=== PATIENT | female | born 1950 | race Caucasian/White ===

== ENCOUNTER 2017-01-16 06:14 | Inpatient (IN) | payer OTHER, MEDICARE ==
--- NOTE | ~2017-01-16 | PREOPHP ---
PreOp History and Physical [facility] [address] [place]. [address] NAME: DOM ALLEN : 50 STATUS : ADM IN PAT#: [id number] AGE: 66 ADM/REG DATE : 01/16/17 MR#: [id number] REPORT SERV DATE: 01/16/17 DICTATED BY: MATTHEW PEÑA DATE: 01/16/17 REPORT STATUS : Draft TRANSCRIBED BY: MODYves DATE: 01/16/17 CHIEF COMPLAINT: Back pain, right hip and leg pain. HISTORY OF PRESENT ILLNESS: A 66-year-old female with a longstanding right buttock and leg pain worse with standing or walking, better with sitting. No history of trauma or injury. Symptoms are gradual in onset, it has just gradually worsened. The worst pain is in the right buttock. She initially saw a hip surgeon, who did not find any actual arthritis of the joint, but did find a labral tear of the acetabulum. She was seen by Dr. Tom Quiros, who did a repair of the labrum in 12/2015. This has not brought about significant relief for her. The pain has worsened in the back, buttock, and leg. It radiates all the way down to her foot. The pain is anywhere from 8-9 on a scale of 0-10, it is best is when she is lying flat and it is still 6/10 at that point. Plain x-rays revealed a grade 1 spondylolisthesis. She also has some thoracolumbar scoliosis from T10-L3. She has a 34- degree scoliosis. The small grade 1 spondylolisthesis, has about 5.7 mm translation with lateral flexion and extension x-rays. This is indicating gross instability at this level. MRI shows severe foraminal stenosis on the right at L4-5 and I think the symptoms that she is now experiencing is related to the severe stenosis and instability at L4-5. She is now admitted for a right-sided L4-5 hemilaminectomy, foraminotomy, facetectomy, transforaminal diskectomy, anterior interbody cage insertion, posterior lateral interbody fusion with local bone graft allograft and posterior percutaneous Voyager instrumentation. Prior to surgery, risks, benefits, alternatives, and expectations have been explained. Consent form is signed. Please note, the patient does have an obvious dropfoot on the right. Strength is only 3/5 on the left. Her strength is also slightly weak for tibialis anterior, posterior tibialis, and EHL at 4/5. Also, please note, because of the complexity of surgery with the need to identify correct level of surgery intraoperatively as well as desire to carry out the safest and most precise dissection. I feel intraoperative navigation will be mandatory. PAST MEDICAL HISTORY: None. PAST SURGICAL HISTORY: She has repair of the gluteus medius and a labrum repair on the right on 01/13/2016. She has also had wisdom teeth extraction, , and a sinus surgery. CURRENT MEDICATIONS: Include Advil, alendronate, aspirin, gabapentin, hydrochlorothiazide, lisinopril, and Prilosec. ALLERGIES: CODEINE. SOCIAL HISTORY: She is and stays at home and takes care of grandchildren. Never smokes. Never uses alcohol. FAMILY HISTORY: Noncontributory. REVIEW OF SYSTEMS: PreOp History and Physical [address] [address] NAME: DOM ALLEN : 50 STATUS : ADM IN [facility]#: [id number] AGE: 66 ADM/REG DATE : 01/16/17 MR#: [id number] REPORT SERV DATE: 01/16/17 DICTATED BY: MATTHEW PEÑA DATE: 01/16/17 REPORT STATUS : Draft TRANSCRIBED BY: JUANA DATE: 01/16/17 Denies any current chest pain, pressure, or shortness of breath. Has no recent alteration in bowel and bladder function. PHYSICAL EXAMINATION: VITAL SIGNS: She is 5 feet 2 inches, 140 pounds. BMI is 25.6. GENERAL: She is alert, cooperative, well oriented, ambulates independently. HEENT: Grossly normal. LUNGS: Clear to auscultation. HEART: Rate is regular and rhythmic. ABDOMEN: Soft with good bowel sounds. No peritoneal signs are noted. MUSCULOSKELETAL: Spine does have some deformity. There is some asymmetry of the flank. There is no pelvic obliquity or leg length discrepancies. Straight leg raising signs are negative. Femoral nerve stretch tests are negative. Motor strength is outlined as previously. The left-sided tibialis anterior is 4/5, on the right it is 3/5. All other motor strengths are 5/5. Reflexes are symmetrical and normal. No dermatomal sensory deficits are found except on the right side. There is some decrease in the L4 distribution. There is no evidence of myelopathy. Lorraine signs are negative. KWABENA signs are negative. Orthopedically, she has no pain with moving hips, knees, or ankles. There are good pulses in all four extremities. No abnormal skin lesions are found. ASSESSMENT AND RECOMMENDATIONS: As listed above. /MODL Matthew Peañ D.O. / [id number] CC: Sofia Beck M.D.
--- NOTE | ~2017-01-16 | OP ---
Record Of Operation [facility] [address] [place]. [address] NAME: DOM ALLEN : 50 STATUS : ADM IN PAT#: [id number] AGE: 66 ADM/REG DATE : 01/16/17 MR#: [id number] REPORT SERV DATE: 01/16/17 DICTATED BY: MATTHEW PEÑA DATE: 01/16/17 REPORT STATUS : Draft TRANSCRIBED BY: MODL DATE: 01/16/17 DATE OF PROCEDURE: PREOPERATIVE DIAGNOSES: 1. Grade 1 spondylolisthesis, L4-5. 2. Severe foraminal stenosis, right side, L4-5, requiring facetectomy. POSTOPERATIVE DIAGNOSES: 1. Grade 1 spondylolisthesis, L4-5. 2. Severe foraminal stenosis, right side, L4-5, requiring facetectomy. PROCEDURE: 1. Microscopic and navigation-assisted surgery. 2. Right L4-5 hemilaminectomy, foraminotomy, and facetectomy. 3. Transforaminal diskectomy. 4. Anterior interbody cage insertion (Capstone). 5. Posterolateral interbody fusion with local bone graft and allograft. 6. Posterior percutaneous Voyager instrumentation, L4-5. SURGEON: Matthew Peña D.O. CAMOUFLAGE ASSEMBLER: Pablito Rosales. ANESTHESIA: General. ESTIMATED BLOOD LOSS: 50 mL. INDICATION FOR SURGERY: Indication for surgery and risks were explained. They are listed in last office note as well in the history and physical. See that for detail. DESCRIPTION OF PROCEDURE: Antibiotic prophylaxis was given. Neurophysiology monitoring leads were inserted. The patient was brought to the operative suite. General anesthetic including endotracheal intubation was administered. Pruitt catheter was placed with sterile technique. The patient was placed prone on a Jose Luis spine frame. Bony prominences were carefully padded. Thoracolumbar spine scrubbed with Hibiclens solution. DuraPrep was painted. Sterile drapes were applied. A small stab wound was carried out over the left posterior superior iliac spine. A percutaneous pin with navigational frame attached was inserted into the PSIS. Intraoperative CT scan with O-arm obtained, CT information used to register the navigational system. With navigational assistance, I identified the right-side of L4-5 facet joint. Just lateral to the facet joint, a 3 cm skin incision was carried out. A blunt navigated probe was placed through the fascia muscle and docked over the facet joint. Muscle dilators were inserted followed by placement of a tubular retractor attached to an arm mount on the table. Record Of Operation [facility] [address] [place]. [address] NAME: DOM ALLEN : 50 STATUS : ADM IN PAT#: [id number] AGE: 66 ADM/REG DATE : 01/16/17 MR#: [id number] REPORT SERV DATE: 01/16/17 DICTATED BY: MATTHEW PEÑA DATE: 01/16/17 REPORT STATUS : Draft TRANSCRIBED BY: JUANA DATE: 01/16/17 The microscope was sterilely draped and used throughout the remainder of procedure. With navigational assistance, I identified the top of the pedicle of L5 and the inferior pedicle of L4. I used a cutting bur, a sukhwinder bur, and started from [id number]. I transected the superior articular facet of L5 just at the top of the pedicle. I removed the pars interarticularis, the lamina, and inferior articular process of L4. This decompressed the central canal and the lateral recess and removing the superior aspect of the facet joint of L5, decompressed the lateral foramen. There was severe foraminal stenosis, due to a combination of spondylolisthesis, facet hypertrophy, and ligamentum hypertrophy. I then carried out a transforaminal diskectomy with curettes, rongeurs, and disk jina. Interbody irrigation was carried out. Interbody trial was carried out. Finally, we used a local bone graft, allograft, and packed it on the left side of the interbody space. A 9 x 26 mm Capstone cage was inserted through the right side maintaining it mostly on the right side to correct some of the coronal deformity. The exiting L4 nerve root was nicely protected and was guarded throughout the procedure. After the posterolateral interbody fusion was completed, the retractor was removed. I then went to the left side, and created a 3 cm skin incision just lateral to the facet joint to match that on the right. We then used a navigated percutaneous Voyager pedicle tap and screw valve grinder. We tapped the pedicles of L4 and L5 bilaterally, followed by placing of a polyaxial Voyager screws at both L4 and L5. The lordotic dumbbell jackelyn was then placed through the top portion, the screw extenders were reduced into the tulip of the pedicle screw. The set screws were inserted and tightened with a torque wrench providing rigid stability. Screw extenders were removed. Intraoperative CT scan with O-arm was repeated showing excellent position of all implants. The fascial opening was closed with a single interrupted #1 Vicryl suture. The subcutaneous tissue was closed with 2-0 Vicryl suture, 2-0 vertical mattress nylon suture was used for skin closure. Sterile dressings were applied. The patient awakened, extubated, and taken to recovery room in satisfactory condition having tolerated procedure well. Sponge, needle, and instrument counts were correct. No intraoperative complications were noted. ALFRED/JUANA Matthew Peña D.O. / [id number] CC: Matthew Peña D.O.
--- NOTE | ~2017-01-16 | DS ---
Discharge Summary [facility] [address] [place]. [address] NAME: DOM ALLEN : 50 STATUS : DIS IN PAT#: [id number] AGE: 66 ADM/REG DATE : 01/16/17 MR#: [id number] REPORT SERV DATE: 01/28/17 DICTATED BY: MATTHEW PEÑA DATE: 01/27/17 REPORT STATUS : Draft TRANSCRIBED BY: MODYves DATE: 01/27/17 Data Collection from hospitalization DISCHARGE DIAGNOSES: 1. Grade 1 spondylolisthesis, L4-5. 2. Severe foraminal stenosis, right side L4-5 requiring facetectomy. 3. Hypertension. 4. Gastroesophageal reflux disease. 5. Anxiety. CONSULTATIONS: None. PROCEDURES PERFORMED: Microscopic navigation assisted surgery, right L4-5; hemilaminectomy; foraminotomy and facetectomy; transforaminal diskectomy; anterior interbody cage insertion (capstone); posterolateral interbody fusion with local bone graft and allograft; posterior percutaneous Voyager instrumentation, L4-5, 01/16/2017. PATHOLOGY: Vertebral bone and soft tissue, lumbar spine - no specific microscopic abnormality. MEDICATIONS: Aspirin 81 mg daily, Neurontin 300 mg every 8 hours, hydrochlorothiazide 25 mg daily, Dilaudid 2-4 mg every four hours as needed, Prinivil 10 mg daily, Robaxin 500 mg every 8 hours, Prilosec 20 mg every morning. CONDITION AT DISCHARGE: Stable. DISPOSITION: The patient was discharged home on a regular diet with activities as instructed. She would follow up with me on 01/31/2017. HOSPITAL COURSE: This is a 66-year-old female, who has had a longstanding right buttock and leg pain that was worse with standing or walking, was better with sitting. There was no history of trauma or injury. The patient has grade 1 spondylolisthesis, L4-5 and severe foraminal stenosis on the right side at L4-5 requiring facetectomy. Treatment options were discussed and it was elected to proceed with surgical intervention. She was admitted to the hospital at this time for further evaluation and treatment. Upon admission, she was taken to the operating room, where she underwent the above-mentioned procedure. She tolerated this well. There were no complications. On postop day #1, she was doing okay. Her blood pressure was a little low. She still complained of a lot of low back pain because her pain medication had been held the last few hours. She had no right hip or leg pain. Homans sign was negative. She was evaluated by Physical Therapy. Over the next couple of days, she continued to progress. She had no right leg pain. Discharge planning was performed. She was changed to oral medications. On 01/19/2017, discharge instructions were given. Due to her improved and stable condition, she was discharged home with the above-stated instructions. Information collected by: Xi Reza Discharge Summary [facility] [address] [place]. [address] NAME: DOM ALLEN : 50 STATUS : DIS IN PAT#: [id number] AGE: 66 ADM/REG DATE : 01/16/17 MR#: [id number] REPORT SERV DATE: 01/28/17 DICTATED BY: MATTHEW PEÑA DATE: 01/27/17 REPORT STATUS : Draft TRANSCRIBED BY: JUANA DATE: 01/27/17 I submit the above information as my discharge summary. TG/JUANA Matthew Peña D.O. / [id number] CC: Sofia Beck M.D.
[~2017-01-16 06:14] MED LIST: ASAB PO; HYDROCHLOROT25 MG PO; NEUR300 PO; PRILO PO; PRIN10 PO
[2017-01-16 11:16] LABS: BASOPHILS 0.4 %; BASOPHILS ABSOLUTE 0.03 10/3/uL (0.0-0.16); EOSINOPHILS 1.1 %; EOSINOPHILS ABSOLUTE 0.08 10/3/uL (0.0-0.53); HEMATOCRIT 34.6 % (36.0-48.0); HEMOGLOBIN 11.8 g/dL (12.0-16.0); IMMATURE GRANULOCYTES ABSOLUTE 0.07 10/3/uL (0.0-0.11); LYMPHOCYTES 33.5 %; LYMPHOCYTES ABSOLUTE 2.38 10/3/uL (0.67-4.30); MANUAL DIFF NO %; MEAN CORPUS HGB CONC 34.1 g/dL (32.0-36.0); MEAN CORPUSCULAR HEMOGLOB 30.9 pg (26.0-34.0); MEAN CORPUSCULAR VOLUME 90.6 fL (80-100); MEAN PLATELET VOLUME 9.2 fL (9.2-13.0); MONOCYTES ABSOLUTE 0.21 10/3/uL (0.21-1.20); NEUTROPHILS ABSOLUTE 4.34 10/3/uL (2.02-8.40); PLATELET COUNT 245 10/3/uL (150-400); RBC DISTRIBUTION WIDTH 13.2 % (12.0-16.0); RED CELL COUNT 3.82 10/6/uL (4.0-5.6); WHITE BLOOD CELLS 7.1 10/3/uL (4.5-10.5)
[2017-01-16 11:24] LABS: BUN (BLOOD UREA NITROGEN) 12 MG/DL (6-23); CALCIUM, SERUM 8.3 MG/DL (8.5-10.4); CHLORIDE, SERUM 108 MMOL/L (96-112); CO2 (CARBON DIOXIDE) 28 MMOL/L (24-34); CREATININE 0.82 MG/DL (0.55-1.02); GFR AFRICAN AMERICAN 86 ML/MIN (>=60); GFR NON AFRICAN AMERICAN 75 ML/MIN (>=60); GLUCOSE, SERUM 111 MG/DL (60-99); POTASSIUM, SERUM 3.7 MMOL/L (3.5-5.3); SODIUM, SERUM 143 MMOL/L (135-148)
[2017-01-17 04:55] LABS: BASOPHILS 0.1 %; BASOPHILS ABSOLUTE 0.01 10/3/uL (0.0-0.16); EOSINOPHILS 0 %; HEMATOCRIT 32.8 % (36.0-48.0); HEMOGLOBIN 11.2 g/dL (12.0-16.0); IMMATURE GRANULOCYTES 0.3 %; IMMATURE GRANULOCYTES ABSOLUTE 0.05 10/3/uL (0.0-0.11); LYMPHOCYTES 5.2 %; LYMPHOCYTES ABSOLUTE 1.02 10/3/uL (0.67-4.30); MANUAL DIFF NO %; MEAN CORPUS HGB CONC 34.1 g/dL (32.0-36.0); MEAN CORPUSCULAR HEMOGLOB 31.3 pg (26.0-34.0); MEAN CORPUSCULAR VOLUME 91.6 fL (80-100); MEAN PLATELET VOLUME 9.8 fL (9.2-13.0); MONOCYTES 4.8 %; MONOCYTES ABSOLUTE 0.94 10/3/uL (0.21-1.20); NEUTROPHILS 89.6 %; NEUTROPHILS ABSOLUTE 17.51 10/3/uL (2.02-8.40); PLATELET COUNT 233 10/3/uL (150-400); RED CELL COUNT 3.58 10/6/uL (4.0-5.6); WHITE BLOOD CELLS 19.5 10/3/uL (4.5-10.5)
[2017-01-17 05:06] LABS: BUN (BLOOD UREA NITROGEN) 13 MG/DL (6-23); CALCIUM, SERUM 8.1 MG/DL (8.5-10.4); CHLORIDE, SERUM 101 MMOL/L (96-112); CO2 (CARBON DIOXIDE) 25 MMOL/L (24-34); CREATININE 0.77 MG/DL (0.55-1.02); GFR AFRICAN AMERICAN 93 ML/MIN (>=60); GFR NON AFRICAN AMERICAN 80 ML/MIN (>=60); GLUCOSE, SERUM 123 MG/DL (60-99); SODIUM, SERUM 137 MMOL/L (135-148)
[2017-01-19] MEDS ORDERED: DIL2TAB PO (13:34)
[2017-01-19] MEDS ORDERED: NEUR100 PO (13:35)
[2017-01-19] MEDS ORDERED: METHOC500B PO (13:35)
== END 2017-01-19 14:21 | disposition home or self-care (01) | DRG 460 ==
LOC: SDC/OF 06:14 → PACU 10:55 → 3SO 12:25
PROVIDERS: Orthopaedic Surgery Orthopaedic Surgery of the Spine
PROC: 4A11X4G Monitoring of Peripheral Nervous Electrical Activity, Intraoperative, External Approach (ICD-10-PCS; 2017-01-16)
PROC: 0SG00AJ Fusion of Lumbar Vertebral Joint with Interbody Fusion Device, Posterior Approach, Anterior Column, Open Approach (ICD-10-PCS; principal; 2017-01-16 07:45)
PROC: 0ST20ZZ Resection of Lumbar Vertebral Disc, Open Approach (ICD-10-PCS; 2017-01-16 07:45)
PROC: 0SG0071 Fusion of Lumbar Vertebral Joint with Autologous Tissue Substitute, Posterior Approach, Posterior Column, Open Approach (ICD-10-PCS; 2017-01-16 07:45)
DX: M51.36 Other intervertebral disc degeneration, lumbar region (principal); I10 Essential (primary) hypertension; K21.9 Gastro-esophageal reflux disease without esophagitis; F41.9 Anxiety disorder, unspecified
CPT/HCPCS: 36415; 80048; 82962; 85025; 86850; 86900; 86901; 88304; 88311; 97116-GP; 97161-GP; 97530-GP; A9270-GY; C1713; C1715; G8978-CK-GP; G8979-CI-GP; J0690; J1170; J2250; J2405; J2710; J3010